=== PATIENT | female | born 1945 | race Caucasian/White ===

== ENCOUNTER 2021-03-28 08:05 | Day surgery (SDC) | payer MEDICARE, BC ==
[2021-03-27 09:17] VITALS: BMI 28.2
--- NOTE | 2021-03-27 11:49 | P.GSHP ---
History of Present Illness H&P Date: 03/25/21 Chief Complaint: Left flank pain The patient is a 76-year-old white female with no prior history of urolithiasis. She recently experienced left-sided abdominal pain. A computed tomography scan showed mild left hydronephrosis due to a 1 cm left UPJ calculus. She was offered the options of extracorporal shockwave lithotripsy (ESWL) versus ureteroscopy with laser lithotripsy and stent placement. The pros, cons, and risks of each were reviewed in detail. She has elected to undergo the latter. - Constitutional Constitutional: Denies chills, Denies fever - Gastrointestinal Gastrointestinal: Reports nausea - Genitourinary (Female) Genitourinary: Reports flank pain, Reports kidney stones, Denies hematuria Past Medical History - Past Family History Sister(s) Family Medical History: Cancer Additional Family Medical History / Comment(s): Thyroid Cancer. Medications and Allergies Home Medications Medication Instructions Recorded Confirmed Type Allopurinol [Zyloprim] 200 mg PO BID 03/27/21 03/27/21 History Ascorbic Acid [Vitamin C] 1,000 mg PO BID 03/27/21 03/27/21 History Aspirin 325 mg PO DAILY 03/27/21 03/27/21 History Atenolol [Tenormin] 50 mg PO QAM 03/27/21 03/27/21 History Bilberry. 150 mg PO DAILY 03/27/21 03/27/21 History Calcium/Magnesium/Vitamin D 1 tab PO DAILY 03/27/21 03/27/21 History Cholecalciferol (Vitamin D3) 125 mcg PO DAILY 03/27/21 03/27/21 History [Vitamin D3 (5000 Iu)] Cinnamon Bark [Cinnamon] 1,000 mg PO BID 03/27/21 03/27/21 History Cranberry Fruit Extract [Cranberry] 4,200 mg PO DAILY 03/27/21 03/27/21 History Flaxseed Oil 1,000 mg PO DAILY 03/27/21 03/27/21 History Folic Acid 0.8 mg PO DAILY 03/27/21 03/27/21 History L.acidoph,Paracasei, B.lactis 1 each PO BID 03/27/21 03/27/21 History [Probiotic] Magnesium 400 mg PO DAILY 03/27/21 03/27/21 History Niacin 500 mg PO HS 03/27/21 03/27/21 History Pravastatin Sodium 80 mg PO HS 03/27/21 03/27/21 History Spironolactone 25 mg PO DAILY 03/27/21 03/27/21 History Tart Aceves 1,200 mg PO BID 03/27/21 03/27/21 History Thyroid,Pork [Howard Thyroid] 60 mg PO QAM 03/27/21 03/27/21 History Turmeric Root Extract [Turmeric] 1,500 mg PO DAILY 03/27/21 03/27/21 History Vitamin B Complex 1 each PO HS 03/27/21 03/27/21 History Vitamin B-12 (Unknown Dose) 1 tab PO QAM 03/27/21 03/27/21 History Vitamin C/Biotin [Hair, Skin and 1 tab PO DAILY 03/27/21 03/27/21 History Nails] Vitamin E. 180 mg PO Q48H 03/27/21 03/27/21 History Vitamin K2 100 mcg PO HS 03/27/21 03/27/21 History Zinc 50 mg PO HS 03/27/21 03/27/21 History amLODIPine [Norvasc] 10 mg PO QAM 03/27/21 03/27/21 History metFORMIN HCL [Glucophage] 500 mg PO BID 03/27/21 03/27/21 History Allergies Allergy/AdvReac Type Severity Reaction Status Date / Time atenolol [From Tenormin] Allergy Swelling Verified 03/27/21 08:54 Surgical - Exam - General well developed, well nourished, no distress - Neck no masses, trachea midline - Respiratory normal respiratory effort, clear to auscultation - Cardiovascular Rhythm: regular Abnormal Heart Sounds: no systolic murmur, no diastolic murmur, no rub, no S3 Gallop, no S4 Gallop, no click, no other - Abdomen Abdomen: soft, non tender, no guarding, no rigid, no rebound - Psychiatric oriented to time, oriented to person, oriented to place, speech is normal, memory intact Results - Imaging CT scan - abdomen: report reviewed Assessment and Plan (1) Calculus of kidney Status: Acute Code(s): N20.0 - CALCULUS OF KIDNEY SNOMED Code(s): 24001634 Plan: Cystoscopy, left ureteroscopy with Holmium laser lithotripsy, left ureteral stent insertion. The procedure has been reviewed in detail. The patient is aware of potential risks, which include anesthesia, bleeding, infection, and ureteral injury. A dusting technique will be performed to ensure that the calculus fragments are small enough to easily passed. A secondary procedure may be required.
--- NOTE | 2021-03-28 08:27 | XR ---
EXAMINATION TYPE: XR KUB DATE OF EXAM: 03/28/2021 8:19 AM CLINICAL HISTORY: Bilateral kidney stones TECHNIQUE: Single supine KUB image of the abdomen is obtained. COMPARISON: None. FINDINGS: Suboptimal evaluation of calculi due to overlying colonic fecal material. There is 12 mm ca lculus centrally left kidney mid to lower pole level L3-L4 disc space level. Additional 8 mm calculus suspected in left kidney lateral and just superior to this. Suspect 3-4 scattered right renal calcul i up to 6 mm in size. Vascular calcification over the bilateral upper pelvis. Occasional surgical clips scattered throughout the pelvis. Slight scoliotic curvature of the spine. O verall nonobstructive bowel gas pattern. Moderate to severe narrowing in both hip joints. Sclerosis a nd narrowing to pubic symphysis. IMPRESSION: As above.
[2021-03-28 09:30] VITALS: RESP 16
[2021-03-28 09:46] LABS: Glucose,Whole Blood 103 mg/dL (75-99)
[2021-03-28] MEDS ORDERED: ONDANSETRON 4 MG/2 ML VIAL ONE (09:46)
[2021-03-28] MEDS ORDERED: ONDANSETRON 4 MG/2 ML VIAL IVP ONE ×2 (09:48→13:05)
[2021-03-28] MEDS ORDERED: DEXAMETHASONE SOD PHOSPHATE 4 MG/ML 1 ML VIAL IV ONE (09:48)
[2021-03-28] MEDS ORDERED: LACTATED RINGERS 1,000 ML IV ONE (09:48)
[2021-03-28] MEDS ORDERED: LIDOCAINE 1% INJ 10MG/ML (20 ML MDV) ONE (11:08)
[2021-03-28] MEDS ORDERED: KETOROLAC 15 MG/ML 1 ML VIAL ONE (11:08)
[2021-03-28] MEDS ORDERED: fentaNYL (PF) 50 MCG/ML 2 ML AMP ONE (11:08)
[2021-03-28] MEDS ORDERED: MIDAZOLAM 2 MG/2 ML VIAL ONE (11:08)
[2021-03-28] MEDS ORDERED: PROPOFOL 10 MG/ML 20 ML VIAL IV ONE (11:08)
[2021-03-28] MEDS ORDERED: ePHEDrine SULFATE/0.9% NACL/PF 50 MG/5 ML SYRINGE IV ONE (11:08)
[2021-03-28] MEDS ORDERED: IOPAMIDOL-370 50ML BTL MISCELLANE ONE (11:27)
--- NOTE | 2021-03-28 12:39 | P.OP ---
Date of Procedure: 03/28/21 Preoperative Diagnosis: Left ureteral calculus Postoperative Diagnosis: Same Procedure(s) Performed: Cystoscopy, left retrograde pyelogram, left ureteroscopy with Holmium laser lithotripsy, left ureteral stent insertion Anesthesia: LUIA Surgeon: Bill Segura Estimated Blood Loss (ml): 0 IV fluids (ml): 400 Pathology: none sent Condition: stable Disposition: PACU Indications for Procedure: The patient is a 76-year-old white female with no prior history of urolithiasis. She recently experienced left-sided abdominal pain. A computed tomography scan showed mild left hydronephrosis due to a 1 cm left UPJ calculus. She was offered the options of extracorporal shockwave lithotripsy (ESWL) versus ureteroscopy with laser lithotripsy and stent placement. The pros, cons, and risks of each were reviewed in detail. She has elected to undergo the latter. Operative Findings: 1 cm left proximal ureteral calculus, dense, fragmented completely. Description of Procedure: The patient was taken to the operating room and placed in the dorsolithotomy position, with legs supported in Varghese stirrups. The external genitalia was prepped and draped sterilely. The 30 lens was used to introduce the 21-Mauritanian Scott cystoscopic sheath through the urethra and into the bladder under direct vision. The bladder was examined in its entirety. Both ureteral orifices were normal anatomic location and configuration, and clear urine effluxed from both. No tumors or foreign bodies were seen. Using a 10-Mauritanian cone-tipped catheter, a left retrograde pyelogram was performed. The calculus was seen as partially obstructing within the left proximal ureter. A 0.038 inch Glidewire was passed through the cystoscope. The ureteral orifice was cannulated, and the Glidewire was advanced up to the calcul us, which appeared impacted. The cystoscope was removed, and an 11/13-Mauritanian ureteral access catheter was passed over the wire, up to the mid ureter. The flexible ureteroscope was then passed through the ureteral access catheter sheath, up to the stone. The 272 micron Holmium laser probe was passed through the ureteroscope, and lithotripsy was performed. The calculus refluxed into the kidney, and the ureteroscope was advanced to follow it. The calculus was very dense, tending to fragment rather than dust as desired. Nonetheless, lithotripsy was continued until all calculus fragments were less than 1 mm in size. The ureteroscope was slowly withdrawn under direct vision. There was no evidence of ureteral trauma. The cystoscope was replaced into the bladder. The Glidewire was advanced up to the left renal pelvis, and a 22 cm, 6-Mauritanian double-J ureteral stent was placed over the wire. Proper stent positioning was verified fluoroscopically and endoscopically. The bladder was emptied and the cystoscope removed. The patient tolerated the procedure well and was taken to the recovery room in stable condition. [facility] [place] Report: Procedure Acuity: Elective Stone Size and Location: 1 cm, left proximal ureter Ureteral Dilation: No Ureteral Access Sheath Used: Yes Stone Sent for Analysis: No All Stones/Fragments Were Removed with a Basket: No Complications: No Preoperative Antibiotics Given: Yes Stent Placed: Yes If Stent Placed, Was String Left Attached: No If Stent Placed, When is it to be Removed: 1 week Discharge Medications: None
[2021-03-28 12:43] VITALS: TEMP 97.1
[2021-03-28] MEDS ORDERED: HYDROmorphone 0.5 MG/0.5 ML SYRINGE IVP ONE ×2 (13:04→13:13)
--- NOTE | 2021-03-28 13:27 | FL ---
EXAMINATION TYPE: FL urography retrograde DATE OF EXAM: 03/28/2021 CLINICAL HISTORY: Left kidney stone. TECHNIQUE: Fluoroscopy. COMPARISON: None. FINDINGS: Fluoroscopic guidance was provided during left kidney stone treatment with ureter stent in sertion procedure performed by Dr. Segura. A total of 11 seconds of fluoroscopic time was utilized d uring the procedure and 2 spot images are acquired. Images acquired show contrast opacification of co llecting system and ureter and subsequent visualization of proximal portion of the double-J ureter st ent IMPRESSION: As Above.
[2021-03-28 14:05] VITALS: BP 124/51; PULSE 49
== END 2021-03-28 14:23 | disposition home or self-care (01) ==
LOC: OR 08:05
PROVIDERS: ATTEND Urology
DX: N13.2 Hydronephrosis with renal and ureteral calculous obstruction (principal); I10 Essential (primary) hypertension; E78.5 Hyperlipidemia, unspecified; Z86.718 Personal history of other venous thrombosis and embolism; M10.9 Gout, unspecified; E07.9 Disorder of thyroid, unspecified; Z85.820 Personal history of malignant melanoma of skin; Z79.82 Long term (current) use of aspirin; Z88.8 Allergy status to other drugs, medicaments and biological substances; Z79.899 Other long term (current) drug therapy
CPT/HCPCS: 74420; 74018; 52356; C1758; C1769; C2625; J2250; J1100; J2405; J0690; J2001; J3010; J1885; J2704; J1170; Q9967